=== PATIENT | male | born 1990 | race Caucasian/White ===

== ENCOUNTER 2020-08-19 10:39 | Emergency (ER) | payer BC, SELFPAY ==
--- NOTE | ~2020-08-19 | CT_ITS ---
EXAMINATION: CT brain wo con DATE: 08/19/2020 11:36 INDICATION: Head injury TECHNIQUE: Computed tomography (CT) of the head was performed without intravenous contrast. Sagittal and coronal reconstructions were performed. The mA was adjusted according to patient size. Iterative reconstruction technique was employed. The dose-length product was 681.00 mGy-cm. COMPARISON: None FINDINGS: No fracture. No acute intracranial hemorrhage, acute infarction or abnormal extra axial fluid collect ion. Ventricles are normal and symmetric. No mass/mass effect. The orbits, paranasal sinuses and mast oid air cells are normal. IMPRESSION: 1. Normal head CT. No fracture or acute intracranial process. Reviewed, dictated and finalized at location A.
--- NOTE | ~2020-08-19 | CT_ITS ---
EXAMINATION: CT cervical spine wo con DATE: 08/19/2020 11:36 INDICATION: Posterior head and neck pain following head injury TECHNIQUE: Computed tomography (CT) of the cervical spine was performed without intravenous contrast. Automated exposure control and iterative reconstruction technique were employed. The dose-length pro duct was 434.90 mGy-cm. COMPARISON: None FINDINGS: Alignment is normal. Mild osteoarthritis at the atlantoaxial articulation. Vertebral body heights are normal. No fractures. Disc heights are normal. Minimal multilevel cervical facet and uncovertebral o steoarthritis. No central canal or neural foraminal stenosis. Cervical soft tissues are unremarkable. Visualized airway and apices of the lungs are clear. IMPRESSION: 1. Negligible cervical spondylosis. No acute osseous abnormality. Reviewed, dictated and finalized at location A.
[2020-08-19 10:44] VITALS: BP 129/78; PULSE 76; RESP 18; TEMP 36.6; O2SAT 100
--- NOTE | 2020-08-19 11:37 | ED.GENADULT ---
HPI - General Adult General Chief complaint: Head Injury Stated complaint: head injury x 2days ago - sent from urgent care Time Seen by Provider: 08/19/20 11:03 Source: patient and RN notes reviewed Mode of arrival: ambulatory Limitations: no limitations History of Present Illness HPI narrative: Patient is a 29-year-old male who presents to emergency department for evaluation of head injury that occurred Monday patient walked into an object on the parietal scalp striking his head noting that he developed instant swelling small amount of bleeding patient notes since then he has had intermittent dizziness nausea, head pressure lightheadedness and neck pain at the base of the skull. Patient presented to urgent care today and was referred to emergency department for further evaluation given his complaints and symptoms patient denies anticoagulant use patient on arrival notes he has not taken anything for his symptoms Related Data Allergies Allergy/AdvReac Type Severity Reaction Status Date / Time No Known Allergies Allergy Mild Verified 08/19/20 11:04 Review of Systems Review of Systems: All systems reviewed & are unremarkable except as noted in HPI and below PMFSH Social History Social History (Updated 08/19/20 @ 11:39 by Ramon Canales PA-C) Smoking status: Never smoker Exam Narrative: Exam Narrative: GENERAL: Well-appearing, well-nourished, and in no acute distress. HEAD: Normocephalic, atraumatic. EYES: PERRLA and EOMI. ENT: Nares clear, no rhinorrhea or epistaxis. Mucous membranes moist. NECK: Supple. No adenopathy or masses. CHEST: Clear to auscultation. No respiratory distress. No wheezes rales or rhonchi HEART: Regular rate and rhythm. No murmur heard. EXTREMITIES: Normal range of motion. No edema. Tenderness of the cervical spine at the base of the skull SKIN: Warm, dry, no rash. NEURO: No focal deficits. Alert and oriented x3. Cranial nerves II through XII grossly intact PSYCH: Normal mood and affect. Course Course Emergency Course: Patient presented with head injury evaluated felt safe for discharge ABCs and vital signs intact and stable patient made aware of case findings and treatment plan and diagnosis Vital Signs Vital signs: Vital Signs Temperature 97.9 F 08/19/20 10:44 Pulse Rate 76 08/19/20 10:44 Respiratory Rate 18 08/19/20 10:44 Blood Pressure 129/78 08/19/20 10:44 Pulse Oximetry 100 06/23/21 10:44 Temperature 97.9 F 08/19/20 10:44 Pulse Rate 76 08/19/20 10:44 Respiratory Rate 18 08/19/20 10:44 Blood Pressure 129/78 08/19/20 10:44 Pulse Oximetry 100 08/19/20 10:44 Medical Decision Making MDM Narrative Medical decision making narrative: Patient presenting with head injury and neck pain evaluated with CT imaging no intracranial or cervical spine abnormality noted will be discharged home with outpatient follow-up provided with reasons to return Vital Signs Vital Signs: Vital Signs Temperature 97.9 F 08/19/20 10:44 Pulse Rate 76 08/19/20 10:44 Respiratory Rate 18 08/19/20 10:44 Blood Pressure 129/78 08/19/20 10:44 Pulse Oximetry 100 08/19/20 10:44 Temperature 97.9 F 08/19/20 10:44 Pulse Rate 76 08/19/20 10:44 Respiratory Rate 18 08/19/20 10:44 Blood Pressure 129/78 08/19/20 10:44 Pulse Oximetry 100 08/19/20 10:44 Imaging Data Radiologist's impression: ITS Impressions Head CT 08/19/20 11:37 IMPRESSION: 1. Normal head CT. No fracture or acute intracranial process. Cervical Spine CT 08/19/20 11:38 IMPRESSION: 1. Negligible cervical spondylosis. No acute osseous abnormality. Discharge Plan Discharge Clinical Impression: Closed head injury, Cervical muscle strain Patient Disposition: Home, Self-Care Condition: Stable Instructions: Antibiotic Form, Cervical Strain (DC), Head Injury (ED) Additional Instructions: Follow up with your primary care doctor in 5 days for re-e
== END 2020-08-19 11:52 | disposition home or self-care (01) ==
PROVIDERS: Emergency Provider Emergency Medicine
DX: S09.90XA Unspecified injury of head, initial encounter (principal); S16.1XXA Strain of muscle, fascia and tendon at neck level, initial encounter; W22.8XXA Striking against or struck by other objects, initial encounter
CPT/HCPCS: 70450; 72125; 99284

== ENCOUNTER 2022-08-07 14:47 | Emergency (ER) | payer OTHER, SELFPAY ==
[2022-08-07 15:19] VITALS: BP 138/91; PULSE 87; RESP 14; TEMP 36.6; O2SAT 99
--- NOTE | 2022-08-07 15:22 | ED.URI ---
HPI - URI/Sore Throat General Chief Complaint: Upper Respiratory Infection Stated Complaint: Sinus Time Seen by Provider: 08/07/22 15:20 Source: patient Mode of arrival: ambulatory Limitations: no limitations History of Present Illness HPI Narrative: Carl is a 31-year-old male patient presenting to the clinic today with complaints of sinus congestion and pressure times several days. He reports that he has recently had right-sided deviated septum surgery and sinus surgery. Reports that he is having a lot of sinus pressure and the right maxillary space as well as bringing out brownish green nasal discharge. He denies any fever or chills. MD elicited complaint: nasal congestion and sinus pain Related Data Home Medications Medication Instructions Recorded Confirmed budesonide-formoterol HFA 160 inhalation 08/07/22 mcg-4.5 mcg/actuation aerosol inhaler (Symbicort) Allergies Allergy/AdvReac Type Severity Reaction Status Date / Time No Known Allergies Allergy Mild Verified 08/19/20 11:04 Review of Systems Review of Systems: Pertinent positives per HPI. Patient denies any fever, chills, rash, headache, visual changes, dizziness, shortness of breath, chest pain, palpitations, nausea, vomiting, diarrhea, constipation, abdominal pain, or any urinary issues. [facility] Social History Social History (Updated 08/19/20 @ 11:39 by Ramon Canales, DIONISIO) Smoking status: Never smoker Comments At the time of my signature, I reviewed and agree with the nursing past medical, surgical, social, and family history. There is no relevant family history pertinent to the patient complaint. Exam Narrative: General: Well-developed, well nourished, in no apparent distress Head: Normocephalic, atraumatic Eyes: Pupils equally round and reactive to light bilaterally, EOM intact, sclera and conjunctive clear, no discharge, lids normal Ears: TMs intact and congested, ear canals clear, no drainage, grossly hearing normal. Nose: Nares patent, green brown discharge, moderate inflammation,right sided maxillary sinus tenderness. Mouth: Oral pharynx without lesions or masses, good dentition, MMM. Neck: Supple, trachea midline, no enlargement of anterior or posterior cervical nodes, no thyroid masses or goiter palpable. Cardio: Regular rate and rhythm, s1 and s2 normal, no murmur appreciated. Resp: Clear to auscultation bilaterally, no rhonchi, rales, wheezing or rubs Course Course Emergency Course: Portions of this record may have been created with voice recognition software. Level of Care: Express Care Visit Vital Signs Vital signs: Vital Signs Temperature 36.6 C 08/07/22 15:19 Pulse Rate 87 08/07/22 15:19 Respiratory Rate 14 08/07/22 15:19 Blood Pressure 138/91 H 08/07/22 15:19 Pulse Oximetry 99 08/07/22 15:19 Oxygen Delivery Room Air 08/07/22 15:19 Temperature 36.6 C 08/07/22 15:19 Pulse Rate 87 08/07/22 15:19 Respiratory Rate 14 08/07/22 15:19 Blood Pressure 138/91 H 08/07/22 15:19 Pulse Oximetry 99 08/07/22 15:19 Oxygen Delivery Room Air 08/07/22 15:19 Vital signs reviewed MDM - URI/Sore Throat MDM Narrative Medical decision making narrative: At the time of visit patient is resting comfortably on the exam table. I suspect patient has acute sinusitis of the right maxilla sinus. Will place on prednisone and Augmentin. Supportive measures were discussed with the patient he voiced understanding discharge instructions agrees to treatment plan. Differential Diagnosis Differential diagnosis: Likely upper respiratory infection, otitis media, sinusitis, viral infection, bronchitis, influenza, pharyngitis and other (COVID) Discharge Plan Discharge Clinical Impression: Sinusitis Qualifiers: Sinusitis location: maxillary Chronicity: acute Recurrence: non-recurrent Qualified Code(s): J01.00 - Acute maxillary sinusitis, unspecified Patient Disposition: Home, Self-Ca
== END 2022-08-07 15:31 | disposition home or self-care (01) ==
PROVIDERS: Emergency Provider Nurse Practitioner Family; PCP Emergency Medicine
DX: J01.00 Acute maxillary sinusitis, unspecified (principal); R12 Heartburn
CPT/HCPCS: 99213; G0463